=== PATIENT | female | born 1950 | race Caucasian/White ===

== ENCOUNTER 2020-12-17 13:09 | Outpatient (RCR) | payer MEDICARE, SELFPAY ==
[2020-12-16] MEDS: COVID-19 VACC, MRNA(PFIZER)/PF 30 MCG/0.3 ML SYRINGE IM (18:37)
[2021-01-06] MEDS: COVID-19 VACC, MRNA(PFIZER)/PF 30 MCG/0.3 ML SYRINGE IM (17:44)
== END 2021-03-22 23:59 ==
LOC: IMMUN 13:09
PROVIDERS: PCP Family Medicine; Visit Provider Family Medicine
DX: Z23 Encounter for immunization (principal)
CPT/HCPCS: 0001A; 0002A; 91300